=== PATIENT | female | born 1940 | race Caucasian/White ===

== ENCOUNTER 2020-10-26 21:55 | Observation (INO) | payer MEDICARE, MEDICAID ==
[~2020-10-26] VITALS: Ht 147.3 cm; Wt 68.0 kg
[2020-10-26 22:06] VITALS: BP 170/79
[2020-10-26] MEDS ORDERED: TRAMADOL 50 MG50 MG PO (22:10)
[2020-10-26] MEDS ORDERED: NEURONTIN 300M300 M2 PO (22:10)
[2020-10-26] MEDS ORDERED: LEVO-T50 MCG PO (22:13)
[2020-10-26 23:19] LABS: URINE BILIRUBIN NEGATIVE (Negative); URINE BLOOD 1+ (Negative); URINE COLOR YELLOW; URINE GLUCOSE-RANDOM NEGATIVE (Negative); URINE KETONES NEGATIVE (Negative); URINE LEUKOCYTES-REFLEX 1+ (Negative); URINE NITRITE-REFLEX NEGATIVE (Negative); URINE PROTEIN NEGATIVE (Negative); URINE SPECIFIC GRAVITY 1.025 (1.005-1.030); URINE UROBILINOGEN 0.2 E.U./dl (0.2-1.0)
[2020-10-26 23:20] LABS: URINE CLARITY SL CLOUDY
[2020-10-26 23:23] LABS: ABSOLUTE EOSINOPHILS 0.1 thou/uL (0.0-0.7); ABSOLUTE LYMPHOCYTES 2.5 thou/uL (0.8-5.3); ABSOLUTE MONOCYTES 0.6 thou/uL (0.0-1.2); ABSOLUTE NEUTROPHILS 3.4 thou/uL (1.6-8.1); BASOPHILS 0.5 %; EOSINOPHILS 1.4 %; HEMATOCRIT 42.1 % (37.0-47.0); LYMPHOCYTES 37.3 %; MCH 30.3 pg (26.0-34.0); MCHC 33.2 g/dL (28.0-37.0); MCV 91.3 fL (80.0-100.0); MONOCYTES 8.6 %; MPV 8.7 fl. (7.2-11.1); NUCLEATED RBCS 0 /100WBC; PLATELET COUNT* 192 thou/uL (150-400); POLYS 52.2 %; RBC 4.61 mil/uL (4.20-5.00); RDW-CV 13.7 % (10.5-14.5); WBC 6.6 thou/uL (4.0-11.0)
[2020-10-26 23:27] LABS: CALCIUM 9.7 mg/dL (8.5-10.1); CREATININE 1.1 mg/dL (0.6-1.3); POTASSIUM 3.7 mmol/L (3.5-5.1)
[2020-10-26 23:32] LABS: TOTAL BILIRUBIN 0.3 mg/dL (<0.1-1.0); TOTAL PROTEIN 7.8 g/dL (6.4-8.2)
[2020-10-26 23:40] LABS: BACTERIA-REFLEX >30 Many /HPF (None Seen); CASTS None Seen /LPF (None Seen); CRYSTALS None Seen /LPF (None Seen); MUCUS 0-3 Light strn/LPF (None Seen); SQUAMOUS 0-3 Few /LPF (0-3); TRANSITIONAL EPITHEL CELL 0-3 Few /LPF (None Seen); URINE RBC 3-10 Few /HPF (0-2); URINE WBC-REFLEX 6-15 Few /HPF (0-5)
[2020-10-27] VITALS (7 sets, daily range): BP systolic 119–130; BP diastolic 66–72
[2020-10-27] MEDS ORDERED: AUGMENTIN 875-1 EACH PO (12:15)
[2020-10-27] MEDS ORDERED: NORCO 10-325 T1 EACH PO (12:15)
[2020-10-27] MEDS ORDERED: PHENERGAN 25 MG25 M1 PO (12:15)
== END 2020-10-27 13:29 | disposition home or self-care (01) ==
LOC: M.ERS 21:55 → M.TBA-ER 10-27 02:45
PROVIDERS: Personal Emergency Response Attendant; ADMIT Family Medicine; ATTEND Family Medicine
DX: K80.10 Calculus of gallbladder with chronic cholecystitis without obstruction (principal); E03.9 Hypothyroidism, unspecified; M79.2 Neuralgia and neuritis, unspecified; N39.0 Urinary tract infection, site not specified; K52.9 Noninfective gastroenteritis and colitis, unspecified; K56.699 Other intestinal obstruction unspecified as to partial versus complete obstruction; Z98.890 Other specified postprocedural states

== ENCOUNTER 2021-01-12 23:48 | Observation (INO) | payer MEDICARE, MEDICAID ==
[~2021-01-12] VITALS: Ht 132.1 cm; Wt 65.3 kg
--- NOTE | ~2021-01-12 | OP ---
[address] [address] OPERATIVE REPORT Name: JC LONG HAN Room: [address] ADM IN M.R.#: [id number] Admission: 01/13/21 Attend Phys: Db Acosta DO Discharge: Date of : 40 Report #: [id number] THIS REPORT FOR: cc: Beau Hendrickson Ryan D. DO Kramer, Adam P. DO ~ DATE OF SERVICE: 01/13/2021 PREOPERATIVE DIAGNOSIS: Incarcerated recurrent ventral hernia. POSTOPERATIVE DIAGNOSES: Incarcerated recurrent ventral hernia and small-bowel obstruction. PROCEDURE: Exploratory laparotomy with release of small-bowel obstruction and repair of recurrent ventral hernia with mesh. SURGEON: Db Acosta MD RN PEDIATRIC ICU: Derik Sandoval DO, PGY-1 SECOND INFORMATICS PHYSICIAN LIAISON: Student, Dr. Harpal Pichardo. ANESTHESIA: General endotracheal. ESTIMATED BLOOD LOSS: Less than 20 mL. COMPLICATIONS: None. DESCRIPTION OF PROCEDURE: After obtaining proper consents and discussing risks and complications with the patient, she was taken to the operating room, laid in the supine position, administered general anesthesia. She was then prepped and draped in the usual sterile fashion. A timeout was performed. We confirmed the appropriate patient and procedure. Preoperative antibiotics had been given. SCDs were in place. We then made a small incision horizontally over top of the palpable hernia in the left lower quadrant. This was carried down through the skin into the subcutaneous tissue until we were able to identify the hernia sac. Once the hernia sac was identified. It was completely dissected free. It appeared that the small bowel, which had been incarcerated within the hernia had already reduced. So at this point, we dissected the hernia sac free and then opened the entire hernia sac. The defect was quite small and I had to enlarge the fascial opening in order to explore the abdomen, we did note a piece of small bowel, which had obviously been up into the hernia. We could see a small ring where it had been incarcerated. The small bowel itself appeared normal. There was one small adhesion to the inside of the hernia sac, which was taken down using electrocautery. I then reduced [place] [address] OPERATIVE REPORT Name: LONG ELIZABETH Room: [address] IN [facility].#: [id number] Admission: 01/13/21 Attend Phys: Db Acosta DO Discharge: Date of : 40 Report #: [id number] peritoneal cavity. We closed the hernia sac and the peritoneum using a 2-0 Vicryl suture. I then developed the preperitoneal space using blunt finger dissection to allow for placement of a 6.[address] mesh, which was inserted and sutured in place to the fascia using 0 Prolene suture. The subcutaneous tissues and fascia were then injected with 0.5% Marcaine without epinephrine and closed using 3-0 Vicryl suture. Skin was closed using 4-0 Monocryl subcuticular stitch. Dermabond was then placed. The patient was then awakened in the operating room and transported to recovery room in stable condition. By: [id number] Acosta DO /nt
[~2021-01-12 23:48] MED LIST: AUGMENTIN 875-1 EACH PO; LEVO-T50 MCG PO; NEURONTIN 300M300 M2 PO; NORCO 10-325 T1 EACH PO; PHENERGAN 25 MG25 M1 PO; TRAMADOL 50 MG50 MG PO
[2021-01-13 00:02] VITALS: BP 157/76
[2021-01-13] MEDS ORDERED: TRAMADOL 50 MG50 MG PO (00:04)
[2021-01-13 00:10] LABS: URINE BILIRUBIN NEGATIVE (Negative); URINE BLOOD NEGATIVE (Negative); URINE CLARITY CLEAR; URINE COLOR YELLOW; URINE GLUCOSE-RANDOM NEGATIVE (Negative); URINE KETONES NEGATIVE (Negative); URINE LEUKOCYTES-REFLEX NEGATIVE (Negative); URINE NITRITE-REFLEX NEGATIVE (Negative); URINE PROTEIN NEGATIVE (Negative); URINE SPECIFIC GRAVITY 1.015 (1.005-1.030); URINE UROBILINOGEN 0.2 E.U./dl (0.2-1.0)
[2021-01-13 00:47] LABS: ABSOLUTE BASOPHILS 0.1 thou/uL (0.0-0.2); ABSOLUTE LYMPHOCYTES 1.5 thou/uL (0.8-5.3); ABSOLUTE MONOCYTES 0.5 thou/uL (0.0-1.2); ABSOLUTE NEUTROPHILS 7.9 thou/uL (1.6-8.1); BASOPHILS 0.6 %; EOSINOPHILS 0.2 %; HEMATOCRIT 40.3 % (37.0-47.0); HEMOGLOBIN 13.4 gm/dL (12.0-15.0); LYMPHOCYTES 15.3 %; MCH 30.5 pg (26.0-34.0); MCHC 33.3 g/dL (28.0-37.0); MCV 91.5 fL (80.0-100.0); MPV 8.6 fl. (7.2-11.1); NUCLEATED RBCS 0 /100WBC; PLATELET COUNT* 219 thou/uL (150-400); POLYS 78.9 %; RDW-CV 14.1 % (10.5-14.5); WBC 10.1 thou/uL (4.0-11.0)
[2021-01-13 00:52] LABS: CALCIUM 8.8 mg/dL (8.5-10.1); CREATININE 0.9 mg/dL (0.6-1.3)
[2021-01-13 00:53] LABS: PROTIME 10.5 Seconds (9.20-11.50)
[2021-01-13 00:56] LABS: ALBUMIN 3.8 g/dL (3.4-5.0); MAGNESIUM 2.1 mg/dL (1.8-2.4); TOTAL BILIRUBIN 0.6 mg/dL (<0.1-1.0); TOTAL PROTEIN 7.7 g/dL (6.4-8.2)
[2021-01-13 06:28] VITALS: BP 142/76
--- NOTE | 2021-01-13 12:38 | NUR ---
81 YEAR OLD FEMALE ADMITTED TO FLOOR FROM SURGERY VIA BED, ACCOMPANIED BY NURSE AND DAUGHTER. PATIENT RESTING IN BED POST HERNIA SERGERY WITH NO C/O PAIN. INCISION TO LOWER ABDOMEN WITH DERMA-BOUND, C/D/I. IV TO LEFT FOREARM, PATENT, DRESSING C/D/I. PATIENT ALERT AND ORIENTED X4. DAUGHTER AT BEDSIDE. ADMISSION DATA BASE COMPLETED. ALL QUESTIONS AND CONCEERNS ADDRESSED. WILL CONTINUE TO MONITOR.
--- NOTE | 2021-01-13 13:14 | NUR ---
THIS NURSE AGREES WITH ASSESSMENT
--- NOTE | 2021-01-13 16:44 | NUR ---
PATIENT RESTING IN BED, FAMILY MEMBER AT BEDSIDE. INCISION TO LOWER ABDOMEN WITH DERMA-MATSON INTACT. SITE WITH NO REDNESS/SWELLING/DRAINAGE. IV TO LEFT FOREARM, PATENT, SALINE LOCKED. DRESSING C/D/I. C/O HEADACHE AND ABDOMINAL PAIN, OXYCODONE GIVEN X1. X1 ASSIST TO BATHROOM. ALL QUESTIONS AND CONCERNS ADDRESSED. WILL CONTINUE TO MONITOR.
[2021-01-13 16:58] VITALS: BP 108/55
[2021-01-13 20:00] VITALS: BP 110/67
[2021-01-14 00:01] VITALS: BP 104/63
[2021-01-14 04:10] VITALS: BP 121/64
--- NOTE | 2021-01-14 04:34 | NUR ---
PT A&O X 4. VSS ON RA. INCISION ON LOW ABD C/D/I. ABD BINDER IN PLACE. PT DENIED ABD PAIN. TYLELOL GIVEN X1 FOR HEADACHE. NO C/O NAUSEA. UP TO THE BR WITH SBA. DTR AT BEDSIDE. WILL CONTINUE TO MONITOR.
[2021-01-14 04:45] LABS: HEMATOCRIT 35.7 % (37.0-47.0); HEMOGLOBIN 11.9 gm/dL (12.0-15.0); MCH 30.3 pg (26.0-34.0); MCHC 33.3 g/dL (28.0-37.0); MPV 8.5 fl. (7.2-11.1); RBC 3.92 mil/uL (4.20-5.00); RDW-CV 14.2 % (10.5-14.5); WBC 11.9 thou/uL (4.0-11.0)
[2021-01-14 04:53] LABS: CALCIUM 8.4 mg/dL (8.5-10.1); POTASSIUM 3.9 mmol/L (3.5-5.1)
[2021-01-14 08:30] VITALS: BP 130/67
[2021-01-14 10:56] VITALS: BP 130/67
--- NOTE | 2021-01-14 10:56 | NUR ---
THIS NURSE AGREES WITH ASSESSMENT
[2021-01-14 11:41] VITALS: BP 118/61
--- NOTE | 2021-01-14 12:16 | NUR ---
Pt is uzbek speaking, completed CM assessment with dtr in room. Pt is A&O. Resides at home with dtr, Independent. No DME. No hx of HH or SNF. Pt is discharging to home today, plan to f/u with surgeon next week per dtr. No needs.
[2021-01-14] MEDS ORDERED: ROXICODONE5 MG PO (12:36)
--- NOTE | 2021-01-14 14:17 | NUR ---
PATIENT DISCHARGED AT THIS TIME VIA WHEELCHAIR ACCOMPANIED BY DAUGHTER, WITH PERSONAL BELONGINGS. DISCHARGE PAPERS REVIEWED WITH PATIENT AND DAUGHTER, NO QUESTIONS. IV DC'D, COTTON AND BANDAID PLACED TO SITE, PATIENT TOLERATED WITHOUT DIFFICULTIES.
== END 2021-01-14 14:40 | disposition home or self-care (01) ==
LOC: M.ERS 23:48 → M.TBA 01-13 06:29 → M.SUR 01-13 06:29 → M.ORTHSURG 01-13 06:31 → M.SUR 01-13 09:25 → M.ORTHSURG 01-14 14:40
PROVIDERS: Emergency Medicine; ADMIT Surgery; ATTEND Surgery
DX: K43.0 Incisional hernia with obstruction, without gangrene (principal); Z20.822 Contact with and (suspected) exposure to COVID-19; Z79.899 Other long term (current) drug therapy